=== PATIENT | female | born 1995 | race Caucasian/White ===

== ENCOUNTER 2022-08-29 14:07 | Day surgery (SDC) | payer BC ==
[2022-08-29] MEDS ORDERED: hydrALAZINE 20 MG/ML VIAL SLOW IVP PRN (16:31)
== END 2022-08-29 16:00 | disposition home or self-care (01) ==
LOC: CSHLD/OP 14:07
PROVIDERS: ATTEND Obstetrics & Gynecology
DX: O99.513 Diseases of the respiratory system complicating pregnancy, third trimester (principal); J32.9 Chronic sinusitis, unspecified; O99.891 Other specified diseases and conditions complicating pregnancy; R03.0 Elevated blood-pressure reading, without diagnosis of hypertension; R51.9 Headache, unspecified; J45.909 Unspecified asthma, uncomplicated; Z88.0 Allergy status to penicillin; Z88.2 Allergy status to sulfonamides; Z91.018 Allergy to other foods; Z79.899 Other long term (current) drug therapy; Z3A.38 38 weeks gestation of pregnancy
CPT/HCPCS: 99282

== ENCOUNTER 2022-09-07 17:36 | Inpatient (IN) | payer BC ==
[2022-09-07 18:05] VITALS: BMI 33.5
[2022-09-07] MEDS ORDERED: Ibuprofen 800 MG TAB PO PRN (18:15)
[2022-09-07] MEDS ORDERED: Lidocaine 1% (PF) 30 ML VIAL SC PRN (18:15)
[2022-09-07] MEDS ORDERED: hydrALAZINE 20 MG/ML VIAL SLOW IVP PRN ×2 (18:15→22:10)
[2022-09-07] MEDS ORDERED: HYDROcodone/Acetaminophen 5/325 mg Tablet PO PRN ×3 (18:15→22:10)
[2022-09-07] MEDS ORDERED: NS w/ Oxytocin 30 units 500 ML IV SCH ×2 (18:15→22:10)
[2022-09-07] MEDS ORDERED: Methylergonovine 0.2 MG/ML VIAL IM PRN ×2 (18:15→22:10)
[2022-09-07] MEDS ORDERED: Promethazine HCl 25 MG/ML VIAL IM PRN (18:15)
[2022-09-07] MEDS ORDERED: Ondansetron PF 4 MG/2 ML Vial IVP PRN ×2 (18:15→22:10)
[2022-09-07] MEDS ORDERED: Misoprostol 200 MCG TAB PR PRN (18:15)
[2022-09-07 19:00] LABS: Hemoglobin 13.5 g/dL (12.0-15.5); Mean Corpuscular HGB CONC 33.3 g/dL (32.0-36.0); Mean Corpuscular Hemoglobin 30.3 pg (27.0-33.0); Mean Corpuscular Volume 91.2 fl (81.6-98.3); Mean Platelet Volume 9.8 fl (7.4-10.4); Platelet Count 315 10x3/uL (150-450); Red Blood Cell (RBC) Count 4.45 10x6/uL (3.90-5.03); White Blood Cell (WBC) Count 15.9 10x3/uL (3.5-10.5)
[2022-09-07 19:28] LABS: HBSAg Index 0.19 S/CO (0-0.99); Hep B Surf Ag - L&D Non-Reactive S/CO (NonReactive)
[2022-09-07 19:29] LABS: Syphilis Antibody Nonreactive (Nonreactive); Syphilis Antibody Index 0.11 S/CO (<1.00 Non-Reactive)
[2022-09-07] MEDS ORDERED: Oxytocin 10 UNITS/ML VIAL ONE (19:39)
[2022-09-07] MEDS ORDERED: Lidocaine 1% (PF) 30 ML VIAL ONE (20:43)
[2022-09-07] MEDS ORDERED: Lanolin Ointment 7 GM TUBE TOP PRN (22:10)
[2022-09-07] MEDS ORDERED: Bisacodyl 10 MG SUPP PR PRN (22:10)
[2022-09-07] MEDS ORDERED: Milk Of Magnesia 30 ML UDCUP PO PRN (22:10)
[2022-09-07] MEDS ORDERED: Misoprostol 200 MCG TAB VAG PRN (22:10)
[2022-09-07] MEDS ORDERED: Boostrix 0.5 ML (Tdap) VIAL (>/=7 yrs of age) IM ONE (22:10)
[2022-09-07] MEDS ORDERED: Benzocaine-Menthol 82.5 ML CAN TOP PRN (22:10)
[2022-09-08] MEDS: Ibuprofen 800 MG TAB PO SCH ×3 (04:46→22:24)
[2022-09-08] MEDS: Docusate 100 MG CAP PO SCH ×2 (08:17→22:24)
[2022-09-08] MEDS: Prenatal Vitamin 1 TAB PO SCH (08:17)
[2022-09-08] MEDS: Ferrous Sulfate 325 MG TAB PO SCH ×2 (08:20→15:46)
[2022-09-08] MEDS: HYDROcodone/Acetaminophen 5/325 mg Tablet PO PRN ×3 (08:23→19:48)
[2022-09-09] MEDS: HYDROcodone/Acetaminophen 5/325 mg Tablet PO PRN ×3 (02:25→12:15)
[2022-09-09] MEDS: Ibuprofen 800 MG TAB PO SCH (06:19)
[2022-09-09 07:40] VITALS: BP 124/78; TEMP 98.3
[2022-09-09] MEDS: Prenatal Vitamin 1 TAB PO SCH (08:09)
[2022-09-09] MEDS: Ferrous Sulfate 325 MG TAB PO SCH (08:10)
[2022-09-09] MEDS: Docusate 100 MG CAP PO SCH (08:47)
== END 2022-09-09 12:20 | disposition home or self-care (01) | DRG 807 ==
LOC: CSHLD/OP 17:36 → CSHLD 18:56 → CSHPP 23:00
PROVIDERS: ADMIT Family Medicine; ATTEND Family Medicine
PROC: 10E0XZZ Delivery of Products of Conception, External Approach (ICD-10-PCS; principal; 2022-09-07)
PROC: 0HQ9XZZ Repair Perineum Skin, External Approach (ICD-10-PCS; 2022-09-07)
PROC: 0UQMXZZ Repair Vulva, External Approach (ICD-10-PCS; 2022-09-07)
DX: O99.52 Diseases of the respiratory system complicating childbirth (principal); Z37.0 Single live birth; O99.62 Diseases of the digestive system complicating childbirth; J45.909 Unspecified asthma, uncomplicated; L40.50 Arthropathic psoriasis, unspecified; O99.72 Diseases of the skin and subcutaneous tissue complicating childbirth; R01.1 Cardiac murmur, unspecified; O99.892 Other specified diseases and conditions complicating childbirth; K64.9 Unspecified hemorrhoids; O69.1XX0 Labor and delivery complicated by cord around neck, with compression, not applicable or unspecified; O70.0 First degree perineal laceration during delivery; Z3A.39 39 weeks gestation of pregnancy; Z79.899 Other long term (current) drug therapy; Z88.2 Allergy status to sulfonamides; Z88.0 Allergy status to penicillin; Z91.018 Allergy to other foods
CPT/HCPCS: 36415; 85027; 86780; 86850; 86900; 86901; 87340; 99285; J2001; J2590